=== PATIENT | female | born 1970 | race Caucasian/White ===

== ENCOUNTER → 2023-08-23 11:12 | Outpatient (REF) | payer BC, SELFPAY | LOC: HWWDC 11:12 | PROVIDERS: ATTENDING PHYSICIAN Nurse Practitioner Adult Health; FAMILY PHYSICIAN Nurse Practitioner | DX: Z12.31 Encounter for screening mammogram for malignant neoplasm of breast (principal) | CPT/HCPCS: 77063; 77067 ==

== ENCOUNTER 2023-09-15 13:44 | Inpatient (IN) | payer BC, SELFPAY ==
[2023-09-15 10:19] VITALS: BP 169/84
--- NOTE | 2023-09-15 10:50 | ED.GENMED ---
History of Present Illness
General
Chief Complaint: Urinary Symptoms
Source: patient
Exam Limitations: none
Time Seen by Provider: 09/15/23 10:39
Travel History
Have you had any contact with someone who has COVID-19?: No
Do you have any symptoms of coronavirus? Fever > 100 degrees, chills, cough, shortness of breath, sore throat, loss of taste or smell, muscle aches, or headache?: No
History of Present Illness
History of Present Illness:
53-year-old female presents complaining of sudden onset right flank pain this morning around 3 AM is sharp stabbing in nature with associated nausea no vomiting. She had a similar episode of discomfort about 5 days ago which seem to go away. She
thought she may have passed a kidney stone. She has never done so before. She denies fevers. She is on multivitamins. Prior abdominal surgical history includes gastric bypass.
Past History
Past History
ED Past Medical History: Other (anemia) and Other (auto immune skin disorder)
Social History
Tobacco: Non-smoker
Personal:
Living: with family
Employment: Employed
Phy Exam
Physical Exam
Physical Exam:
General: Well-appearing female no acute respiratory distress
HEENT: Normocephalic atraumatic
Heart: Regular rate and rhythm no murmurs
Lungs: Clear to auscultation bilaterally no wheezing
Abdomen: Soft mild right-sided costovertebral angle tenderness
Extremities: No cyanosis or edema
Skin: Warm no rash
Course
Orders/Labs/Results
Orders:
Orders
09/15/23 10:48
CT Abd/pel Without Iv Or Oral Urgent
Comment:
Reason For Exam: right flank pain
0.9% Sodium Chloride 500 ml [Nss] 500 ml IV BOLUS
Ketorolac [Toradol] 15 mg IV NOW STA
Ondansetron Injectable [Zofran] 4 mg IV NOW STA
09/15/23 11:08
Complete Blood Count/With Diff Urgent
Comprehensive Metabolic Panel Urgent
Urinalysis Reflex To Culture Urgent
Date Specimen was Collected: 09/15/23
Time Specimen was Collected: 11:07
Abnormal Lab Results
09/15/23
11:08
RBC 3.97 L 10^6/uL
(4.20-5.40)
MCHC 32.4 L g/dL
(33.0-37.0)
Absolute Lymphs (auto) 0.8 L 10^3/uL
(1.2-3.4)
Absolute Monos (auto) 0.7 H 10^3/uL
(0.1-0.6)
Lymphocytes % 12.9 L %
(20.5-51.1)
Monocytes % 11.1 H %
(1.7-9.3)
Glucose 121 H mg/dl
(70-99)
09/15/23 11:08
09/15/23 11:08
Vital Signs
Initial and Last Documented VS:
Initial Vital Signs
Temp Pulse Resp BP Pulse Ox
98.0 F 85 18 169/84 98
09/15/23 10:19 09/15/23 10:19 09/15/23 10:19 09/15/23 10:19 09/15/23 10:19
Last Documented Vital Signs
Temp Pulse Resp BP Pulse Ox
98.0 F 74 18 137/77 98
09/15/23 10:19 09/15/23 12:06 09/15/23 12:06 09/15/23 12:06 09/15/23 12:06
MDM/Problems Addressed
Differential Diagnosis Includes:
Right flank pain Nepali could include renal colic versus UTI versus musculoskeletal flank pain
Patient has intermittent pain initial episode about 5 days ago then went away and had sudden onset of pain again today. Will check labs. Urinalysis pending. Will treat symptoms with Toradol Zofran and fluids. CT pending
*Critical Care Note
Total Time (30-74mins, 75-104mins- exclusive of procedures): Not Applicable
Update Note
Update Note:
CT scan demonstrates 1.5 cm stone in the proximal right ureter with moderate to severe hydronephrosis. Urinalysis negative white blood cell count normal. Pain is improved after Toradol. Discussed findings with patient and significant other. Also
discussed findings with urology. Unlikely that the stone will pass on its own. No emergent need for surgery currently per urology but patient comfortable with discharge and follow-up. Will admit for pain control with urologic consultation
ED Attending Note
-
Portions of this chart may have been created with voice recognition software.� Occasional wrong word or��sound alike� substitutions may have occurred due to the inherent limitations of voice recognition software.
Discharge Plan
Departure
Patient Disposition: Admit
Date of Disposition: 09/15/23
Time of Disposition: 13:15
Admit to: Med/Surg
Presentation/result/management discussed w/ accepting MD/DO: Hospitalist
Discharge Problem:
Ureterolithiasis
Referrals:
Phillip Yeager MD [Family Provider] -
Interventions
Interventions:
*Risk Screen - Suicide Last Done: 09/15/23 11:04
*General Assessment Last Done: 09/15/23 11:04
*Neglect/Abuse Screening Last Done: 09/15/23 11:04
ED- Fall Risk Assessment Last Done: 09/15/23 11:30
*ED COVID-19 Vaccine History Last Done: 09/15/23 11:04
ED-Female Genitourinary Assessment Last Done: 09/15/23 11:04
[2023-09-15 11:04] VITALS: BMI 42.2
[2023-09-15] MEDS: ZOFRAN 4 MG IV (11:17)
[2023-09-15] MEDS: TORADOL 15 MG IV ×3 (11:17→23:06)
[2023-09-15] MEDS: NSS 500 IV (11:18)
[2023-09-15 11:37] LABS: % Basophils 0.5 % (0-2); % Eosinophils 1.3 % (0-6); % Immature Granulocytes 0.5 % (0-0.5); % Lymphocytes 12.9 % (20.5-51.1); % Monocytes 11.1 % (1.7-9.3); % Neutrophils 73.7 % (42.2-75.2); Absolute Eosinophils 0.1 10^3/uL (0-0.7); Absolute Lymphocytes 0.8 10^3/uL (1.2-3.4); Absolute Monocytes 0.7 10^3/uL (0.1-0.6); Absolute Neutrophils 4.6 10^3/uL (1.4-6.5); Mean Corp Hgb Conc. 32.4 g/dL (33.0-37.0); Mean Corpuscular Hgb 30.2 pg (27.0-31.0); Mean Corpuscular Volume 93.2 fL (81.0-99.0); Mean Platelet Volume 10.1 fL (7.4-10.4); Nucleated Red Blood Cells % 0 %; Platelet Count 267 10^3/uL (130-400); Red Blood Cell Count 3.97 10^6/uL (4.20-5.40); Red Cell Dist. Width 13.7 % (11.5-14.5); White Blood Cell Count 6.2 10^3/uL (4.8-10.8)
[2023-09-15 11:39] LABS: Urine Albumin Negative (Neg - Trace); Urine Bilirubin Negative (Negative); Urine Character Clear (Clear); Urine Color Yellow; Urine Glucose Negative (Negative); Urine Ketone Negative (Negative); Urine Leukocyte Negative (Negative); Urine Nitrite Negative (Negative); Urine Occult Blood Negative (Negative); Urine Urobilinogen Negative (Neg - 1+)
[2023-09-15 11:49] LABS: ALT (SGPT) 17 U/L (0-35); AST (SGOT) 24 U/L (14-36); Albumin 3.9 g/dl (3.5-5.0); Alkaline Phosphatase 91 U/L (38-126); Blood Urea Nitrogen 12 mg/dl (7-17); Carbon Dioxide 30 mmol/L (22-30); Chloride 104 mmol/L (98-107); Estimated Creatinine Clearance 105 ml/min; Glucose 121 mg/dl (70-99); Potassium 4.1 mmol/L (3.5-5.1); Sodium 137 mmol/L (135-145); Total Bilirubin 0.6 mg/dl (0.2-1.3); Total Protein 6.5 g/dl (6.3-8.2); eGFR > 60.00
[2023-09-15 12:06] VITALS: BP 137/77
--- NOTE | 2023-09-15 13:15 | HPS.HSE ---
Addendum entered and electronically signed by Harmeet Granados MD 09/15/23 16:29:
Pain is controlled with narcotic analgesic
Onset of symptoms 3
Lungs clear
CV reg
Abd soft, nondistended
Ext no edema
input of urologist appreciated
CT scan: There is a 15 mm obstructing calculus in the proximal right ureter associated with moderate-severe right hydronephrosis and mild right perinephric edema
Imp:obstructing Rt kidney stone
s/p gastric bypass
P:IVF
pain control
urologic intervention planned for Sunday
Original Note:
Family Physician
-
Family Physician: Phillip Yeager
Chief Complaint
-
right flank pain
History of Present Illness
53-year-old female presented to us with right flank pain. Patient initially felt the pain last Sunday . She was evaluated on Sunday by PCP . Had a urinalysis which showed blood in the urine. She had discomfort throughout the week . She woke up
with sharp right flank pain this morning associate with nausea and chills . Stated some headache . Patient denied runny nose congestion cough .patient denied chest pain or short of breath .patient denied vomiting or diarrhea .patient denied
hematuria but stated urinary frequency .
CT with 15 mm ureteral stone with hydro. Patient received fluids, Toradol and Zofran in the ER. Admitting for further management
Medical History
Past Medical History
Past Medical History: Reports Other
Additional Past Medical History:
Anemia
Autoimmune skin disorder
Past Surgical History: Reports Other
Additional Past Surgical History:
Tonsillectomy
Gastric bypass
Social History
Tobacco: Non-smoker
Alcohol: Occasional
Drug: None
Personal:
Living: With Family
Employment: Employed
Family History
Family History: Not pertinent
Allergies / Home Medications
Allergies reflects when Allergies were last updated in [employer].
Home Medications with original date entered in [employer]
Allergy/Medication List:
Allergies
Allergy/AdvReac Type Severity Reaction Status Date / Time
celecoxib [From Celebrex] Allergy Unknown Verified 09/15/23 10:24
doxycycline Allergy Unknown Unverified 08/13/12 12:18
Tetracyclines Allergy Unknown Unverified 08/13/12 12:18
Home Medications
cholecalciferol (vitamin D3) 25 mcg (1,000 unit) tablet (Vitamin D3) 25 mcg PO DAILY 09/15/23
multivitamin 1 tab PO DAILY 09/15/23
Review of Systems
-
Constitutional: Reports No Symptoms
EENT: Reports No Symptoms
Respiratory: Reports No Symptoms
Cardiac: Reports No Symptoms
Abdomen/GI: Reports Nausea
: Reports Flank Pain (right )
Musculoskeletal: Reports No Symptoms
Skin: Reports No Symptoms
Neurological: Reports No Symptoms
Endocrine: Reports No Symptoms
Hematologic/Lymphatic: Reports No Symptoms
Psych: Reports No Symptoms
Physical Exam
Vital Signs
Vital Signs
Temp Pulse Resp BP Pulse Ox
98.0 F 74 18 137/77 98
09/15/23 10:19 09/15/23 12:06 09/15/23 12:06 09/15/23 12:06 09/15/23 12:06
Physical Exam
General: Well Developed, Well Nourished and No Apparent Distress
HEENT: NormoCephalic, Moist mucous membranes and Atraumatic
Respiratory: Clear
Cardiac: S1/S2 and Regular Rhythm; No Murmur or Rub
GI: Soft, Non Tender, Non Distended and Normal Bowel Sounds; No Organomegaly
Rectal: Deferred by Provider
Musculoskeletal: No Clubbing, No Cyanosis and No Edema
Skin: No Rash
Neuro: AO x 3 and Nonfocal/grossly intact
Psych: Calm
Laboratory Results
-
09/15/23 11:08
09/15/23 11:08
Laboratory Results
Total Bilirubin 0.6 mg/dl (0.2-1.3) 09/15/23 11:08
AST 24 U/L (14-36) 09/15/23 11:08
ALT 17 U/L (0-35) 09/15/23 11:08
Alkaline Phosphatase 91 U/L (38-126) 09/15/23 11:08
Data Reviewed
-
CT Scan: Report Reviewed by me
Lab Data: Labs Reviewed by me
Impression/Plan
-
# Right flank pain likely from obstructive right ureter calculus with moderate to severe hydro
-UA negative
-CT abdomen pelvis with impression of15 mm obstructing calculus in the proximal right ureter associated with moderate-severe right hydronephrosis and mild right perinephric edema
-Strain urine
-Fluids continued
-oxy and Dilaudid prn for pain
-Zofran prn for n/v
-iv ceftriaxone
-Urology aware
#DVT Prophylaxis
-scd
#CODE status
-full code
[2023-09-15 14:10] VITALS: BP 132/68
[2023-09-15 15:01] VITALS: BP 149/81
[2023-09-15 15:03] VITALS: BMI 41.4
[2023-09-15] MEDS: NSS 1000 IV (15:12)
[2023-09-15] MEDS: STERILE WATER FOR INJECTION 10 ML IV (15:13)
[2023-09-15] MEDS: ROCEPHIN 1000 MG IV (15:13)
--- NOTE | 2023-09-15 15:18 | CONS.URO ---
Consultation
-
Date/Time Consultation Requested: 09/15/2023 13:09
Date/Time Consultation Performed: 09/15/2023 14:55
Requesting Provider: Kate [ED]
Performing Provider: Morgan
Reason for Consultation: right ureteral stone
Medical History
History of Present Illness
53 yo female reports onset of right-sided abdominal ~ 6 days ago with associated nausea; saw PCP on 09/10/23: 'RLQ back pain since last night, believes she passed a kidney stone';
Urinalysis [09/10/2023]:
�Color YELLOW
�����Clarity CLEAR
�����Glucose NEGATIVE
�����Bilirubin NEGATIVE
�����Ketones NEGATIVE
�����Specific gravity 1.010
�����Blood TRACE+
�����pH 6.0
�����Protein NEGATIVE
�����Urobilinogen NEGATIVE
�����Nitrite NEGATIVE
�����Leukocytes NEGATIVE
Urine Cx: no growth
Past Medical History
Past Medical History: Hypercholesterolemia and Other ( Autoimmune skin disorder, Obesity, Pernicious Anemia Hemorrhoids. FX right foot. Iron deficiency Iron Infusion 2018. Vitamin D deficiency. Granuloma annulare )
Past Surgical History: Other ( Tonsillectomy, Gastric bypass)
Social History
Tobacco: Non-smoker
Personal:
Living: With Family
Employment: Employed
Family History
Family History: Reviewed & Not Pertinent (Mother: CAD - DM Maternal Grand Father: Stroke)
Allergies/Home Medications
Allergies
Allergy/AdvReac Type Severity Reaction Status Date / Time
celecoxib [From Celebrex] Allergy Unknown Verified 09/15/23 10:24
doxycycline Allergy Unknown Unverified 08/13/12 12:18
Tetracyclines Allergy Unknown Unverified 08/13/12 12:18
Home Medications
Medication Instructions Recorded Confirmed Type
cholecalciferol (vitamin D3) 25 25 mcg PO DAILY 09/15/23 09/15/23 History
mcg (1,000 unit) tablet (Vitamin
D3)
multivitamin 1 tab PO DAILY 09/15/23 09/15/23 History
Review of Systems
-
EENT: Reports No Symptoms
Respiratory: Reports No Symptoms
Cardiac: Reports No Symptoms
Abdomen/GI: Reports Nausea
Skin: Reports No Symptoms
Neurological: Reports No Symptoms
Endocrine: Reports No Symptoms
Hematologic/Lymphatic: Reports No Symptoms
Psych: Reports No Symptoms
Physical Exam
Vital Signs
Vital Signs
Temp Pulse Resp BP Pulse Ox
98.2 F 74 16 149/81 97
09/15/23 15:01 09/15/23 15:01 09/15/23 15:01 09/15/23 15:01 09/15/23 15:01
Lab / Testing Results
Laboratory Results
09/15/23 11:08
09/15/23 11:08
Physical Exam
adult female in [facility]; at [facility]
General: No Apparent Distress and Comfortable
HEENT: Normocephalic
Respiratory: Non Labored Respirations
Neuro: Awake, Alert and Oriented
Psych: Calm and Intact Judgement
Assessment / Plan
-
Right Ureteral Stone: 14 mm, proximal, partially obstructing
no signs of systemic infection
pain is now well managed
Patient was offered outpatient symptom management with planned return on Sunday or Sunday for outpatient Right Ureteroscopy, Laser Lithotripsy and Stenting; she is fearful that the pain she experienced earlier today, which did not respond to 800 mg
ibuprofen, would recur.
She prefers to remain as an inpatient 'in case the pain comes back'.
I have confirmed that there is no OR team/PACU currently in hospital. As she has no SIRS criteria, has well-managed pain, has normal renal function, as delay of surgery does not represent a threat to her health, her surgery cannot reasonably be
deemed an 'emergency' at this time. She and her understand and accept that surgical intervention might not occur until Sunday -- I have posted her for that date provisionally.
Data Reviewed
-
CT Scan: Image personally visualized and interpreted (Right Ureteral Stone: 14 mm, proximal, partially obstructing), Discussed with Patient and Discussed with Family ()
Lab Data: Labs Reviewed (09/10/23 outpatient urine Cx: no growth) and Discussed with Patient
Old Records: Reviewed
[2023-09-15] MEDS: FLOMAX 0.400000000000000022 MG PO (17:12)
[2023-09-15 23:19] VITALS: BP 142/75
[2023-09-16] VITALS (10 sets, daily range): BP systolic 108–143; BP diastolic 63–80
[2023-09-16] MEDS: DILAUDID 0.5 MG IV (03:37)
[2023-09-16] MEDS: TORADOL 15 MG IV ×4 (06:09→23:08)
--- NOTE | 2023-09-16 06:28 | W.SUR.PREOP ---
Pre-Operative Surgical Note
-
The patient's pain was reasonably well-controlled overnight.
'I have an appetite now, so that's a good sign.'
Emergency cases have been posted to OR according to Nursing Stained Glass Glazier, consequently patient has been posted for
Right Ureteroscopy, Laser Lithotripsy and Stenting.
Surgical consent forma has been signed and place on chart.
[2023-09-16 07:05] LABS: Hematocrit 34.4 % (37.0-47.0); Hemoglobin 11.2 g/dL (12.0-16.0); Mean Corp Hgb Conc. 32.6 g/dL (33.0-37.0); Mean Corpuscular Hgb 30.9 pg (27.0-31.0); Mean Corpuscular Volume 94.8 fL (81.0-99.0); Platelet Count 223 10^3/uL (130-400); Red Blood Cell Count 3.63 10^6/uL (4.20-5.40); Red Cell Dist. Width 14.1 % (11.5-14.5); White Blood Cell Count 6.1 10^3/uL (4.8-10.8)
[2023-09-16 07:26] LABS: Blood Urea Nitrogen 14 mg/dl (7-17); Calcium 8.4 mg/dl (8.4-10.2); Carbon Dioxide 24 mmol/L (22-30); Chloride 108 mmol/L (98-107); Estimated Creatinine Clearance 93 ml/min; Glucose 125 mg/dl (70-99); Potassium 3.7 mmol/L (3.5-5.1); Sodium 135 mmol/L (135-145); eGFR > 60.00
[2023-09-16] MEDS: FLOMAX 0.400000000000000022 MG PO (08:40)
[2023-09-16] MEDS: ROXICODONE 5 MG PO ×3 (08:40→19:57)
--- NOTE | 2023-09-16 09:24 | W.IMMPOSTOP ---
Surgical Immed Post Op Note
-
Primary Surgeon: Morgan
Pre-op Diagnosis: Right Ureteral Calculus, 14 mm, proximal, obstructing
Post-op Diagnosis: same
Procedure Performed: Right Ureteroscopy, Laser Lithotripsy, Stenting
Anesthesia Type: LMA
Specimen / Cultures: stone fragments
Estimated Blood Loss: negligible
Complications: none
Operative Findings: large, proximal, obstructing right ureteral stone
--- NOTE | 2023-09-16 10:26 | W.PN.HOSP.TC ---
Today's Communication/Plan
-
continue abx, IVF
Assessment / Plan
Assessment / Plan
# Right flank pain likely from obstructive right ureter calculus with� moderate to severe hydro
-UA negative
-CT abdomen pelvis with impression of15 mm obstructing calculus in the proximal right ureter associated with moderate-severe right hydronephrosis and mild right perinephric edema
-Strain urine
-Fluids continued
-oxy and Dilaudid prn for pain
-Zofran prn for n/v
-iv ceftriaxone
-Underwent rt ureteroscopy, laser lithotripsy with stenting this morning. Pt still with flank discomfort, feels exhausted post procedure
#DVT Prophylaxis
-scd
#CODE status
-full code
discussed with pt possibility of dc to home today. She would like to go home, but not sure if she will be okay. Pt told will plan on keeping her, continue abx, IVF, analgesia and if feels well enough will dc later today or else will see her early
tomorrow and if doing well, will dc at that point
Anticipated Discharge: Within 24 hours
Subjective/Interval History
-
Date of Service: September 16, 2023
In good spirits, following urologic procedure
Objective Data
-
Labs:
Laboratory Results
09/16/23
06:47
WBC 6.1
Hgb 11.2 L
Hct 34.4 L
Plt Count 223
Sodium 135
Potassium 3.7
Chloride 108 H
Carbon Dioxide 24
BUN 14
Creatinine 0.9
Glucose 125 H
Calcium 8.4
Vital Signs:
Vital Signs
Temp Pulse Resp BP Pulse Ox
97.9 F 70 16 121/73 96
09/16/23 07:35 09/16/23 07:35 09/16/23 07:35 09/16/23 07:35 09/16/23 07:35
I&O
09/15/23 09/16/23 09/17/23
05:59 06:59 06:59
Output Total
Balance
Review of Systems
-
History Source: Patient
Constitutional: Denies Fever
EENT: Reports No Symptoms Reported
Respiratory: Reports No Symptoms
Cardiac: Reports No Symptoms
Abdomen/GI: Reports No Symptoms
Genitourinary: Reports Flank Pain (better currently)
Physical Exam
-
General: Well Developed, Well Nourished and No Apparent Distress
HEENT: Normocephalic, Atraumatic and Moist Mucous Membranes
Respiratory: Clear to Auscultation; Negative Wheezes, Rales or Rhonchi
Cardiac: Regular Rhythm and S1/S2
GI: Soft, Nontender and Nondistended
Musculoskeletal: No Clubbing, No Cyanosis and No Edema
[2023-09-16] MEDS: Pyridium 200 MG PO (10:49)
[2023-09-16] MEDS: DETROL LA 4 MG PO (10:49)
[2023-09-16] MEDS: STERILE WATER FOR INJECTION 10 ML IV (15:24)
[2023-09-16] MEDS: ROCEPHIN 1000 MG IV (15:24)
[2023-09-16] MEDS: NSS IV (22:02)
[2023-09-17] MEDS: DILAUDID 0.5 MG IV (00:11)
[2023-09-17 03:27] VITALS: BP 124/74
[2023-09-17] MEDS: ROXICODONE 5 MG PO ×2 (03:54→10:41)
[2023-09-17] MEDS: NSS 1000 IV (05:01)
[2023-09-17] MEDS: TORADOL 15 MG IV ×2 (06:28→12:30)
[2023-09-17 07:35] VITALS: BP 147/81
[2023-09-17 07:46] LABS: Hematocrit 34.2 % (37.0-47.0); Hemoglobin 10.9 g/dL (12.0-16.0); Mean Corp Hgb Conc. 31.9 g/dL (33.0-37.0); Mean Corpuscular Hgb 30.3 pg (27.0-31.0); Mean Platelet Volume 10.3 fL (7.4-10.4); Platelet Count 234 10^3/uL (130-400); Red Cell Dist. Width 14.2 % (11.5-14.5); White Blood Cell Count 7.9 10^3/uL (4.8-10.8)
--- NOTE | 2023-09-17 08:04 | W.PN.URO.CBU ---
Today's Communication / Plan
-
outpatient stent removal in ~ 3 weeks
Assessment / Plan
-
stable
Diagnosis
-
Date of Service: September 17, 2023
-
Patient Diagnosis: Pre-op Diagnosis:� Right Ureteral Calculus, 14 mm, proximal, obstructing
s/p� Right Ureteroscopy, Laser Lithotripsy, Stenting
Post Op Day: 1
Subjective
-
pt stayed overnight due to persistent sx; 'now I feel much better and want to go home.'
Objective
-
Vital Signs
Temp Pulse Resp BP Pulse Ox
98.2 F 69 16 124/74 94
09/17/23 03:27 09/17/23 03:27 09/17/23 03:27 09/17/23 03:27 09/17/23 03:27
Intake and Output
09/16/23 09/17/23 09/18/23
06:59 06:59 06:59
Intake Total 2380 / 2380
Output Total 1200 / 1200
Balance 1180 / 1180
Intake:
Oral fluids 1680 / 1680
IV fluids (Total) 700 / 700
normosol 100 / 100
Output:
Urine, Voided 1200 / 1200
Laboratory Results
09/17/23 07:26
Physical Exam
-
General - well developed, no distress
Care Review
Data Reviewed
Discussed with: Nursing
[2023-09-17 08:13] LABS: Blood Urea Nitrogen 11 mg/dl (7-17); Calcium 8.7 mg/dl (8.4-10.2); Carbon Dioxide 24 mmol/L (22-30); Chloride 111 mmol/L (98-107); Estimated Creatinine Clearance > 125 ml/min; Glucose 114 mg/dl (70-99); Potassium 3.9 mmol/L (3.5-5.1); Sodium 136 mmol/L (135-145); eGFR > 60.00
[2023-09-17] MEDS: FLOMAX 0.400000000000000022 MG PO (09:12)
[2023-09-17 11:19] VITALS: BP 129/79
--- NOTE | 2023-09-17 12:48 | CM ---
CM met with pt bedside
Pt resides with her spouse in a 2SH with 0STE
Full flight to 2nd floor
Pt is independent with her ADLs
CM observed independence throughout room
PCP- Phillip Yeager
Rx- [facility]
Discharge Disposition- home, no needs, spouse transport
--- NOTE | 2023-09-17 13:23 | W.PN.HOSP.TC ---
Addendum entered and electronically signed by Harmeet Granados MD 09/17/23 17:33:
Pt with BMI 42, larger frame, obese associated with large frame
Original Note:
Today's Communication/Plan
-
dc today
Assessment / Plan
Assessment / Plan
# Right flank pain likely from obstructive right ureter calculus with� moderate to severe hydro
-UA negative
-CT abdomen pelvis with impression of15 mm obstructing calculus in the proximal right ureter associated with moderate-severe right hydronephrosis and mild right perinephric edema
-Strain urine
-small Rx for Percocet to use at home prn
-iv ceftriaxone last dose now, then can be discharged
-Underwent rt ureteroscopy, laser lithotripsy with stenting 09/15 morning. Pt still with flank discomfort now only intermittently, but pt wants Rx to have at home in case has a severe episode, feels exhausted post procedure
#DVT Prophylaxis
-scd
-full code
see dictated note
will dc post dose of Rocephin
More than 30 minutes spent in discharge including
Final examination of the patient
Summarizing hospital stay
Instructions for continuing care to all relevant caregivers
Preparation of discharge records, prescriptions, and referral forms
Total time spent (in minutes): 45
Anticipated Discharge: Today
Subjective/Interval History
-
Date of Service: September 17, 2023
Still with flank pain intermittently
Objective Data
-
Labs:
Laboratory Results
09/17/23
07:26
WBC 7.9
Hgb 10.9 L
Hct 34.2 L
Plt Count 234
Sodium 136
Potassium 3.9
Chloride 111 H
Carbon Dioxide 24
BUN 11
Creatinine 0.6
Glucose 114 H
Calcium 8.7
Vital Signs:
Vital Signs
Temp Pulse Resp BP Pulse Ox
98.0 F 72 20 129/79 97
09/17/23 11:19 09/17/23 11:19 09/17/23 11:19 09/17/23 11:19 09/17/23 11:19
I&O
09/16/23 09/17/23 09/18/23
06:59 06:59 06:59
Intake Total 2380 / 2380
Output Total 1200 / 1200
Balance 1180 / 1180
Review of Systems
-
History Source: Patient
Constitutional: Denies Fever
EENT: Reports No Symptoms Reported
Respiratory: Reports No Symptoms
Cardiac: Reports No Symptoms
Abdomen/GI: Reports No Symptoms
Genitourinary: Reports Flank Pain (better currently, but does get intermittent episodes that can be severe)
Physical Exam
-
General: Well Developed, Well Nourished and No Apparent Distress
HEENT: Normocephalic, Atraumatic and Moist Mucous Membranes
Respiratory: Clear to Auscultation; Negative Wheezes, Rales or Rhonchi
Cardiac: Regular Rhythm and S1/S2
GI: Soft, Nontender and Nondistended
Musculoskeletal: No Clubbing, No Cyanosis and No Edema
[2023-09-17] MEDS: STERILE WATER FOR INJECTION 10 ML IV (14:36)
[2023-09-17] MEDS: ROCEPHIN 1000 MG IV (14:36)
[2023-09-17 15:03] VITALS: BP 127/75
--- NOTE | 2023-09-17 16:40 | PN.CDI ---
CDI
- -
CDI:
Physician Documentation Request
Admit Date: 09/15/23 13:44
Dear Doctor Darwin,
Please review the following and provide your response in the progress notes.
Clinical Indicators:
Height: 5 ft 6 inches
Weight:261
BMI: 42.2
RD notes states ' chart reviewed due to pt with BMI > 40 morbidly obese range, '
If possible, please provide an associated diagnosis related to the abnormal BMI, such as:
BMI > or = to 40
Overweight
Obesity:
Due to excess calories
Drug induced
Due to other cause
Severe or morbid obesity:
With alveolar hypoventilation (Obesity hypoventilation syndrome)
Without alveolar hypoventilation
- BMI is not significant
- Other
Use of terms such as suspected, likely, concern for, or probable (associated with a specific diagnosis that is being evaluated, monitored, or treated as if it exists) are acceptable and can be coded in the inpatient setting, when documented at the
time of discharge.
Thank you,
Aarti Alfred RN, BSN
CDI Specialist
tiger text
Please use your independent medical judgment in providing your response.
--- NOTE | 2023-09-17 17:37 | W.DS.TRANS ---
DC Summary - [employer]
-
Discharge Instructions:
Discharge Diagnosis/Procedures Right Ureteral Stone s/p Ureteroscopy, Laser
Lithotripsy and Stenting
Diet No restrictions
Activity No restrictions
Driving Restrictions No driving for 24 hours
Bathing Restrictions None
Blood Work cbc, bmp in 1 week
Instructions:
Stand-Alone Forms:
Changes to Home Medications: Yes
Discharge Medications:
DC Medications w/original date entered in [employer]
cholecalciferol (vitamin D3) 25 mcg (1,000 unit) tablet (Vitamin D3) 25 mcg PO DAILY 09/15/23
multivitamin 1 tab PO DAILY 09/15/23
methenam 118 mg-m.blue 10 mg-s.phos 40.8 mg-p.salic 36 mg-hyos capsule (Uro-MP) 1 tab PO QID bladder irritation #30 caps 09/16/23
solifenacin 10 mg tablet 10 mg PO DAILY urinary frequency/urgency #30 tabs 09/16/23
cefuroxime axetil 500 mg tablet 500 mg PO BID 5 days #10 tabs 09/17/23
oxycodone 5 mg tablet 5 mg PO Q4HPRN PRN moderate pain #8 tabs 09/17/23
tamsulosin 0.4 mg capsule 0.4 mg PO DAILY #30 caps 09/17/23
Home Medication Changes
Ceftin for 5 days
Percocet prn pain
Flomax, solifenacin, methenam post stone
Pending Results: Yes
Additional Pending Results:
stone analysis
[2023-09-20 15:32] LABS: Stone Analysis Mass 80 mg
== END 2023-09-17 16:57 | disposition home or self-care (01) | DRG 660 ==
LOC: 4 EAST ACU 13:44
PROVIDERS: Physician Assistant; Registered Nurse; ADMITTING PHYSICIAN Internal Medicine; CONSULT PHYSICIAN Specialist; EMERGENCY PHYSICIAN Emergency Medicine; FAMILY PHYSICIAN Internal Medicine
PROC: 0T768DZ Dilation of Right Ureter with Intraluminal Device, Via Natural or Artificial Opening Endoscopic (ICD-10-PCS; 2023-09-16)
PROC: 0TF68ZZ Fragmentation in Right Ureter, Via Natural or Artificial Opening Endoscopic (ICD-10-PCS; 2023-09-16)
DX: N13.2 Hydronephrosis with renal and ureteral calculous obstruction (principal); Z68.41 Body mass index [BMI] 40.0-44.9, adult; E66.9 Obesity, unspecified; Z98.84 Bariatric surgery status; E78.00 Pure hypercholesterolemia, unspecified
CPT/HCPCS: 74018; 74176; 76000; 80048; 80053; 81003; 82365; 85025; 85027; 93005; 96361; 96374; 96375; 99284; C1894; C2617